=== PATIENT | male | born 1950 ===

== ENCOUNTER 2018-08-11 21:31 | Emergency (ER) | payer OTHER ==
[2018-08-11 22:30] VITALS: BP 163/90; PULSE 68; RESP 20; TEMP 98.6; O2SAT 98
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
== END 2018-08-12 00:09 | disposition home or self-care (01) ==
LOC: C.ER 21:31
DX: S16.1XXA Strain of muscle, fascia and tendon at neck level, initial encounter (principal); M25.561 Pain in right knee; M25.562 Pain in left knee; V43.52XA Car driver injured in collision with other type car in traffic accident, initial encounter; Y92.410 Unspecified street and highway as the place of occurrence of the external cause